=== PATIENT | male | born 1980 | race Caucasian/White ===

== ENCOUNTER 2017-01-25 11:34 | Emergency (ER) | payer OTHER ==
[2017-01-25 11:34] VITALS: BMI 26.6
[2017-01-25] MEDS ORDERED: Albuterol 0.083% Inhal Sol (2.5 mg/3 mL) UD IH STA (12:17)
--- NOTE | 2017-01-25 12:19 | C.PDOC ---
History Of Present Illness 36 yo male w/o significant PMHx come in for evaluation of URI sx for past 2 weeks. Pt reports, started as nasal congestion, sore throat and dry cough. Pt sts, cough gradually worsen and now more persistent, with clear sputum, developed chest tightness on cough. Pt admits, was seen by PMD and completed course of Zithromax without improvement. Otherwise, pt denies high fever, chills , dizziness, headache, neck pain, drooling, dysphagia, dyspnea, SOB, wheezing, abd. pain, N/V/D, UTI sx, back pain. Denies recent travel or sick contact. Ambulate to Ed for evaluation, not in any apparent distress. Time Seen by Provider: 01/25/17 12:00 Chief Complaint (Nursing): Cough, Cold, Congestion History Per: Patient Past Medical History Reviewed: Historical Data, Nursing Documentation, Vital Signs Vital Signs: Last Vital Signs Temp 97.5 F L 01/25/17 11:42 Pulse 69 01/25/17 11:42 Resp 17 01/25/17 11:42 BP 128/83 01/25/17 11:42 Pulse Ox 100 01/25/17 12:19 - Medical History PMH: No Chronic Diseases Denies: Asthma Surgical History: No Surg Hx Family History: States: No Known Family Hx - Social History Hx Tobacco Use: No Hx Alcohol Use: No Hx Substance Use: No - Immunization History Hx Tetanus Toxoid Vaccination: No Hx Influenza Vaccination: No Hx Pneumococcal Vaccination: No Review Of Systems Except As Marked, All Systems Reviewed And Found Negative. Constitutional: Negative for: Fever, Chills ENT: Positive for: Nose Discharge, Nose Congestion. Negative for: Ear Discharge , Throat Pain, Throat Swelling Cardiovascular: Negative for: Chest Pain, Palpitations Respiratory: Positive for: Cough, Sputum. Negative for: Hemoptysis, Pleuritic Pain, Wheezing Gastrointestinal: Negative for: Nausea, Vomiting, Abdominal Pain, Diarrhea Genitourinary: Negative for: Dysuria, Frequency Musculoskeletal: Negative for: Neck Pain, Back Pain Skin: Negative for: Rash Neurological: Negative for: Weakness, Numbness, Altered Mental Status, Headache , Dizziness Physical Exam - Physical Exam Appears: Well, Non-toxic, No Acute Distress Skin: Normal Color, Warm, Dry, No Rash Eye(s): bilateral: PERRL Ear(s): Bilateral: Normal Nose: No Flaring Oral Mucosa: Moist, No Drooling Throat: No Erythema, No Exudate, No Drooling Neck: Supple Cardiovascular: Rhythm Regular, No JVD Respiratory: No Decreased Breath Sounds, No Accessory Muscle Use, No Rales, No Rhonchi, No Stridor, No Wheezing Gastrointestinal/Abdominal: Normal Exam, Soft, No Tenderness Back: No CVA Tenderness Extremity: No Pedal Edema, No Deformity Neurological/Psych: Oriented x3, Normal Speech ED Course And Treatment O2 Sat by Pulse Oximetry: 100 Pulse Ox Interpretation: Normal - Radiology CXR: Interpreted by Me, Viewed By Me CXR Interpretation: Yes: No Acute Disease Progress Note: On re-eval, pt is afebrile, hemodynamicaly stable. Non-toxic, tolerate PO well in ED. PulseOx 100% RA. ENT: no acute findings. Neck: Supple , (-) meningeal sign. Lungs: CTA B/L, BS equal B/L. CVS: (+)S1S2, reg. Neuorlogicaly intact. CXR: no acute finidngs. Pt has clinical findings c/w acute bronchitis. pt advised. ref. to /[facility] in 2-3 days for re-eval. return to ED if any worsening or new changes. Disposition Counseled Patient/Family Regarding: Studies Performed, Diagnosis, Need For Followup, Rx Given - Disposition Referrals: Dexter Dejesus MD [Staff Provider] - Disposition: HOME/ ROUTINE Disposition Time: 13:06 Condition: STABLE Additional Instructions: Encourage fluids Take medication as prescribed Follow up with PMD, Pulmonology in 2-3 days for re-evaluation. Return to ED if any worsening or new changes. Prescriptions: Albuterol HFA [Ventolin HFA 90 mcg/actuation (8 g)] 1 puff IH Q6 #1 inhaler Benzonatate [Tessalon Perle] 100 mg PO TID #14 capsule Prednisone [Deltasone] 40 mg PO DAILY #6 tablet Instructions: Acute Bronchitis (ED) Forms: [employer] ([place]) - Clinical Impression Clinical Impression: Bronchitis
[2017-01-25] MEDS ORDERED: Albuterol 0.083% Inhal Sol (2.5 mg/3 mL) UD ONE (12:51)
[2017-01-25 13:37] VITALS: BP 120/78; PULSE 76; RESP 20; TEMP 97.9; O2SAT 97
--- NOTE | 2017-01-25 15:43 | RAD ---
HISTORY: Cough COMPARISON: 02/03/2016 TECHNIQUE: Chest PA and lateral FINDINGS: LUNGS: No active pulmonary disease. PLEURA: No significant pleural effusion identified. No pneumothorax apparent. CARDIOVASCULAR: Normal. OSSEOUS STRUCTURES: No significant abnormalities. VISUALIZED UPPER ABDOMEN: Normal. OTHER FINDINGS: None. IMPRESSION: No active disease.
== END 2017-01-25 13:35 | disposition home or self-care (01) ==
LOC: C.ER 11:34
DX: J20.9 Acute bronchitis, unspecified (principal)

== ENCOUNTER 2017-02-08 10:55 | Emergency (ER) | payer OTHER ==
[2017-02-08 10:55] VITALS: BMI 26.6
[2017-02-08 11:02] VITALS: BP 122/77; PULSE 77; RESP 16; TEMP 97.9; O2SAT 100
--- NOTE | 2017-02-08 11:16 | C.PDOC ---
History Of Present Illness Patient is a 36 y/o male who presents to the ED with complaints of pain to the left leg after falling a few days ago, points to his severino. Denies any knee pain or ankle pain. Time Seen by Provider: 02/08/17 11:06 Chief Complaint (Nursing): Lower Extremity Problem/Injury History Per: Patient History/Exam Limitations: no limitations Onset/Duration Of Symptoms: Days Current Symptoms Are (Timing): Still Present Recent travel outside of the [place]: No Past Medical History Reviewed: Historical Data, Nursing Documentation, Vital Signs Vital Signs: Last Vital Signs Temp 97.9 F 02/08/17 10:58 Pulse 77 02/08/17 10:58 Resp 16 02/08/17 10:58 BP 122/77 02/08/17 10:58 Pulse Ox 100 02/08/17 11:57 - Medical History PMH: No Chronic Diseases Surgical History: No Surg Hx Family History: States: Unknown Family Hx - Social History Hx Tobacco Use: No Hx Alcohol Use: No Hx Substance Use: No - Immunization History Hx Tetanus Toxoid Vaccination: No Hx Influenza Vaccination: No Hx Pneumococcal Vaccination: No Review Of Systems Constitutional: Negative for: Fever, Weakness Cardiovascular: Negative for: Chest Pain Respiratory: Negative for: Shortness of Breath Gastrointestinal: Negative for: Abdominal Pain Musculoskeletal: Positive for: Leg Pain (LLE) Skin: Negative for: Rash, Bruising Neurological: Negative for: Headache Physical Exam - Physical Exam Appears: Well, Non-toxic, No Acute Distress Skin: Normal Color, Warm, Dry Head: Atraumatic, Normacephalic Eye(s): bilateral: Normal Inspection, EOMI Oral Mucosa: Moist Neck: Normal ROM Chest: Symmetrical Extremity: Normal ROM (x4), No Calf Tenderness, No Deformity, No Swelling, Other (Tenderness to the distal portion of anterior tibial area of the left lower extremity) Pulses: Left Dorsalis Pedis: Normal Neurological/Psych: Oriented x3, Normal Speech Gait: Steady ED Course And Treatment O2 Sat by Pulse Oximetry: 100 (Room air) Pulse Ox Interpretation: Normal - Other Rad Tibia/Fibula X-Ray: Interpreted by Me, Viewed By Me Interpretation: Contusion of L anterior aspect of distal tibia area. Medical Decision Making Medical Decision Making: Impression: Leg injury Plan: Left Tibia/Fibula XRAY ordered. Progress, Reassess and Dispo: Xray reviewed by me showing no acute fracture. Patient advised to ice, rest and take NSAID for pain Disposition Counseled Patient/Family Regarding: Diagnosis, Need For Followup, Rx Given - Disposition Disposition: HOME/ ROUTINE Disposition Time: 11:51 Condition: STABLE Additional Instructions: : Your xray was normal, no fracture. Please apply ice to area 15 minutes three times a day. Take Motrin as needed for pain every 6 hours, with food to not upset stomach. Follow up with orthopedic if pain persists over one week. Prescriptions: Ibuprofen [Motrin] 600 mg PO Q8 #30 tab Instructions: Contusion in Adults (DC) Forms: [employer] ([employer]) - POA Present On Arrival: None - Clinical Impression Clinical Impression: Contusion of leg - Scribe Statement The provider has reviewed the documentation as recorded by the Scribe Gay Zayas All medical record entries made by the Scribe were at my direction and personally dictated by me. I have reviewed the chart and agree that the record accurately reflects my personal performance of the history, physical exam, medical decision making, and the department course for this patient. I have also personally directed, reviewed, and agree with the discharge instructions and disposition.
--- NOTE | 2017-02-08 12:27 | RAD ---
Left tibia and fibula two views History: Pain. Injury. Comparison: None available. Findings: No evidence for acute displaced fracture or dislocation. Impression: Negative acute. If pain persists, consider MRI.
== END 2017-02-08 12:02 | disposition home or self-care (01) ==
LOC: C.ER 10:55
DX: S80.12XA Contusion of left lower leg, initial encounter (principal); W18.30XA Fall on same level, unspecified, initial encounter

== ENCOUNTER 2017-05-03 11:00 | Emergency (ER) | payer OTHER ==
[2017-05-03 11:00] VITALS: BMI 26.6
[2017-05-03 11:17] VITALS: BP 135/77; PULSE 75; RESP 19; TEMP 98; O2SAT 99
--- NOTE | 2017-05-03 11:49 | C.PDOC ---
History Of Present Illness 36 y/o male presents to the ER complaining of runny nose and nonproductive cough which has been present for several days. Patient states that he has chest pain when he is coughing. He denies nausea, vomiting, diarrhea, and fever. He reports that he has rash on both hands. Time Seen by Provider: 05/03/17 11:30 Chief Complaint (Nursing): Cough, Cold, Congestion History Per: Patient History/Exam Limitations: no limitations Onset/Duration Of Symptoms: Days Current Symptoms Are (Timing): Still Present Past Medical History Reviewed: Historical Data, Nursing Documentation, Vital Signs Vital Signs: Last Vital Signs Temp 98.0 F 05/03/17 11:06 Pulse 75 05/03/17 11:06 Resp 19 05/03/17 11:06 BP 135/77 05/03/17 11:06 Pulse Ox 99 05/03/17 15:37 - Medical History PMH: No Chronic Diseases Denies: Asthma Surgical History: No Surg Hx Family History: States: No Known Family Hx - Social History Hx Tobacco Use: No Hx Alcohol Use: No Hx Substance Use: No - Immunization History Hx Tetanus Toxoid Vaccination: No Hx Influenza Vaccination: No Hx Pneumococcal Vaccination: No Review Of Systems Except As Marked, All Systems Reviewed And Found Negative. Constitutional: Negative for: Fever, Chills Cardiovascular: Positive for: Chest Pain (chest pain with coughing) Respiratory: Positive for: Cough (non-productive cough) Physical Exam - Physical Exam Appears: Non-toxic, No Acute Distress Skin: Rash (Eczematous patches on hands bilateraly) Head: Atraumatic, Normacephalic Nose: Normal Oral Mucosa: Moist Neck: Supple Chest: Symmetrical Cardiovascular: Rhythm Regular Respiratory: Normal Breath Sounds, No Rales, No Rhonchi, No Stridor, No Wheezing Gastrointestinal/Abdominal: Normal Exam Neurological/Psych: Oriented x3, Normal Speech, Normal Cognition ED Course And Treatment O2 Sat by Pulse Oximetry: 99 (RA) Pulse Ox Interpretation: Normal Medical Decision Making Medical Decision Making: Impression: Coughing Plan: Disposition Counseled Patient/Family Regarding: Diagnosis, Need For Followup, Rx Given - Disposition Referrals: Dexter Dejesus MD [Staff Provider] - Disposition: HOME/ ROUTINE Disposition Time: 11:46 Condition: STABLE Additional Instructions: FOLLOW UP WITH DR. DEJESUS ON [facility] FOR RE-EVALUATION. IF SYMPTOMS GET WORSE OR ANY NEW CONCERNING SYMPTOMS DEVELOP RETURN TO ED. Prescriptions: Benzonatate [Tessalon Perle] 1 cap PO TID PRN #21 capsule PRN Reason: Cough Triamcinolone 0.1% [Triamcinolone Acetonide] 1 appl TP BID #1 tube Instructions: Eczema in Children (ED), Upper Respiratory Infection (ED) Forms: [employer] ([place]) - Clinical Impression Clinical Impression: Viral illness, Hand eczema - PA / SOIL ENGINEER / Resident Statement MD/DO has reviewed & agrees with the documentation as recorded. - Scribe Statement The provider has reviewed the documentation as recorded by the Krys Fermin Provider Attestation All medical record entries made by the Krys were at my direction and personally dictated by me. I have reviewed the chart and agree that the record accurately reflects my personal performance of the history, physical exam, medical decision making, and the department course for this patient. I have also personally directed, reviewed, and agree with the discharge instructions and disposition.
== END 2017-05-03 12:00 | disposition home or self-care (01) ==
LOC: C.ER 11:00
DX: B34.9 Viral infection, unspecified (principal); L30.9 Dermatitis, unspecified

== ENCOUNTER 2017-07-05 13:30 | Emergency (ER) | payer OTHER ==
[2017-07-05 13:30] VITALS: BMI 26.6
[2017-07-05 13:42] VITALS: BP 112/72; PULSE 72; RESP 16; TEMP 98.6; O2SAT 99
--- NOTE | 2017-07-05 14:38 | C.PDOC ---
History Of Present Illness 36 year old male presents to the ED for evaluation of runny nose and cough that is productive of green sputum which began 1 week ago. Patient notes his cough is associated with chest pain. He states his symptoms have gradually been improving as the week progresses. He denies fever, chills, generalized body aches. Patient denies history of smoking. Time Seen by Provider: 07/05/17 14:05 Chief Complaint (Nursing): Cough, Cold, Congestion History Per: Patient History/Exam Limitations: no limitations Onset/Duration Of Symptoms: Other (1 week ) Current Symptoms Are (Timing): Better Associated Symptoms: Cough, Sputum, Other (runny nose ). denies: Fever, Chills Ear Symptoms: Bilateral: None Additional History Per: Patient Past Medical History Reviewed: Historical Data, Nursing Documentation, Vital Signs Vital Signs: Last Vital Signs Temp 98.6 F 07/05/17 13:39 Pulse 72 07/05/17 13:39 Resp 16 07/05/17 13:39 BP 112/72 07/05/17 13:39 Pulse Ox 99 07/07/17 08:41 - Medical History PMH: No Chronic Diseases Denies: Asthma Surgical History: No Surg Hx Family History: States: Unknown Family Hx - Social History Hx Tobacco Use: No Hx Alcohol Use: No Hx Substance Use: No - Immunization History Hx Tetanus Toxoid Vaccination: No Hx Influenza Vaccination: No Hx Pneumococcal Vaccination: No Review Of Systems Constitutional: Negative for: Fever, Chills ENT: Positive for: Nose Discharge Cardiovascular: Positive for: Chest Pain Respiratory: Positive for: Cough, Sputum Musculoskeletal: Negative for: Other (generalized body aches ) Physical Exam - Physical Exam Appears: Non-toxic, No Acute Distress Skin: Normal Color, Warm, Dry Head: Atraumatic, Normacephalic Eye(s): bilateral: Normal Inspection Ear(s): Bilateral: Other (TM occlusion with cerumen ) Nose: Other (nasal congesion bilaterally ) Oral Mucosa: Moist Throat: Normal, No Erythema, No Exudate Neck: Supple Chest: Symmetrical, No Deformity, No Tenderness Cardiovascular: Rhythm Regular, No Murmur Respiratory: Normal Breath Sounds, No Rales, No Rhonchi, No Wheezing Extremity: Normal ROM, Capillary Refill (less than 2 seconds ) Neurological/Psych: Normal Speech, Normal Cognition ED Course And Treatment O2 Sat by Pulse Oximetry: 99 (on RA) Pulse Ox Interpretation: Normal Medical Decision Making Medical Decision Making: Please take mucinex as prescribed for cough and Ibuprofen for pain from coughing. FOllow up with your doctor. Disposition Counseled Patient/Family Regarding: Diagnosis, Need For Followup, Rx Given - Disposition Referrals: Dexter Dejesus MD [Staff Provider] - Disposition: HOME/ ROUTINE Disposition Time: 15:13 Condition: GOOD Additional Instructions: Please take mucinex for cough. Take Tylneol or Motrin for pain from coughing. Follow up with Dr Dejesus in 1-2 days. Return to ER for any worse symptoms. Prescriptions: Benzonatate [Tessalon Perle] 100 mg PO TID #10 capsule Ibuprofen [Motrin] 600 mg PO TID #30 tab Instructions: Viral Upper Respiratory Infection, Adult (DC) Forms: [employer] ([place]ian), General Discharge Instructions - Clinical Impression Clinical Impression: Upper respiratory infection - PA / MILITARY EQUIPMENT SPECIALIST / Resident Statement MD/DO has reviewed & agrees with the documentation as recorded. - Scribe Statement The provider has reviewed the documentation as recorded by the Scribe (Marilyn Knight) All medical record entries made by the Scribe were at my direction and personally dictated by me. I have reviewed the chart and agree that the record accurately reflects my personal performance of the history, physical exam, medical decision making, and the department course for this patient. I have also personally directed, reviewed, and agree with the discharge instructions and disposition.
== END 2017-07-05 15:32 | disposition home or self-care (01) ==
LOC: C.ER 13:30
DX: J06.9 Acute upper respiratory infection, unspecified (principal)

== ENCOUNTER 2018-05-26 10:36 | Emergency (ER) | payer OTHER ==
[2018-05-26 10:36] VITALS: BMI 26.6
--- NOTE | 2018-05-26 12:12 | C.PDOC ---
History Of Present Illness 37 y/o male presents to the ED complaining of a runny nose, cough, and fever for 3 days. He has not tried taking any OTC meds. Cough has no sputum production. Patient reports developed some chest pain with coughing, as well as feeling fatigued. No known sick contacts. No recent travel. Time Seen by Provider: 05/26/18 11:16 Chief Complaint (Nursing): Flu-like Symptoms History Per: Patient History/Exam Limitations: no limitations Onset/Duration Of Symptoms: Days (x 3) Current Symptoms Are (Timing): Still Present Associated Symptoms: Fever, Cough, Nasal Congestion Past Medical History - Medical History PMH: Denies: Asthma Family History: States: Unknown Family Hx - Social History Hx Tobacco Use: No Hx Alcohol Use: No Hx Substance Use: No - Immunization History Hx Tetanus Toxoid Vaccination: No Hx Influenza Vaccination: No Hx Pneumococcal Vaccination: No Review Of Systems Constitutional: Positive for: Fever, Weakness (fatigue). Negative for: Chills Eyes: Negative for: Redness, Other (icterus) ENT: Positive for: Nose Congestion. Negative for: Mouth Swelling, Throat Pain Cardiovascular: Positive for: Chest Pain (with coughing) Respiratory: Positive for: Cough. Negative for: Shortness of Breath, Sputum Gastrointestinal: Negative for: Nausea, Vomiting, Diarrhea Genitourinary: Negative for: Dysuria, Hematuria Musculoskeletal: Negative for: Back Pain Skin: Negative for: Rash Neurological: Negative for: Weakness, Numbness, Dizziness Physical Exam - Physical Exam Appears: Well, Non-toxic, No Acute Distress Skin: Normal Color, Warm, No Rash Head: Atraumatic, Normacephalic Eye(s): bilateral: Normal Inspection, PERRL, EOMI Ear(s): Bilateral: Normal (no drainage) Nose: Discharge (Enlarged turbinates bilaterally with clear nasal discharge) Oral Mucosa: Moist Throat: Normal (no swelling or injection, airway patent), No Erythema, No Exudate Neck: Normal ROM, Supple Chest: Symmetrical, No Tenderness Cardiovascular: Rhythm Regular, No Murmur Respiratory: Normal Breath Sounds, No Rales, No Rhonchi, No Wheezing, Other (Moving air well) Gastrointestinal/Abdominal: Soft, No Tenderness, No Distention Extremity: Bilateral: Atraumatic, Normal ROM Pulses: Left Radial: Normal, Right Radial: Normal Neurological/Psych: Oriented x3, Normal Cranial Nerves Medical Decision Making Medical Decision Making: Impression: Flu-like symptoms Plan: CXR taken and flu swab sent. Serology reviewed, flu negative. Disposition Counseled Patient/Family Regarding: Studies Performed, Diagnosis, Need For Followup, Rx Given - Disposition Disposition: HOME/ ROUTINE Disposition Time: 12:32 Condition: STABLE Additional Instructions: DEB ROCKWE[place], thank you for letting us take care of you today. Your provider was Neiljoi LOU and you were treated for upper respiratory infection. The emergency medical care you received today was directed at your acute symptoms. If you were prescribed any medication, please fill it and take as directed. It may take several days for your symptoms to resolve. Return to the Emergency Department if your symptoms worsen, do not improve, or if you have any other problems. Please contact your doctor or call one of the physicians/clinics you have been referred to that are listed on the Patient Visit Information form that is included in your discharge packet. Bring any paperwork you were given at discharge with you along with any medications you are taking to your follow up visit. Our treatment cannot replace ongoing medical care by a primary care provider outside of the emergency department. Thank you for allowing the [facility] team to be part of your care today. If you had an X-Ray or CT scan: A Radiologist will review the ED reading if any change in treatment is needed we will contact you. Prescriptions: Cetirizine HCl/Pseudoephedrine [Zyrtec-D Tablet] 1 each PO DAILY #14 tab.er.12h Ibuprofen [Motrin Tab] 600 mg PO TID #30 tab Instructions: Viral Upper Respiratory Infection, Adult (DC) Forms: [employer] ([place]), General Discharge Instructions, Work Excuse - Clinical Impression Clinical Impression: Upper respiratory infection - PA / OBJECT ORIENTED PROGRAMMER / Resident Statement MD/DO has reviewed & agrees with the documentation as recorded. - Scribe Statement The provider has reviewed the documentation as recorded by the Suadibcoleen Parry All medical record entries made by the Scribe were at my direction and personally dictated by me. I have reviewed the chart and agree that the record accurately reflects my personal performance of the history, physical exam, medical decision making, and the department course for this patient. I have also personally directed, reviewed, and agree with the discharge instructions and disposition.
--- NOTE | 2018-05-26 12:18 | RAD ---
HISTORY: pna COMPARISON: Chest x-ray performed 01/25/17 TECHNIQUE: Chest PA and lateral FINDINGS: LUNGS: No focal consolidation. Please note that chest x-ray has limited sensitivity for the detection of pulmonary masses. PLEURA: No significant pleural effusion identified. No definite pneumothorax . CARDIOVASCULAR: Heart size appears within normal limits. No atherosclerotic calcification present. OSSEOUS STRUCTURES: No acute osseous abnormality identified. VISUALIZED UPPER ABDOMEN: Unremarkable. OTHER FINDINGS: None. IMPRESSION: No focal consolidation.
[2018-05-26 12:21] VITALS: BP 117/73; PULSE 76; RESP 18; TEMP 98.2; O2SAT 99
== END 2018-05-26 12:43 | disposition home or self-care (01) ==
LOC: C.ER 10:36
DX: J06.9 Acute upper respiratory infection, unspecified (principal)

== ENCOUNTER 2018-09-10 12:49 | Emergency (ER) | payer OTHER ==
[2018-09-10 12:49] VITALS: BMI 26.6
--- NOTE | 2018-09-10 13:18 | C.PDOC ---
History Of Present Illness 37 y/o male presents to the ED complaining of a runny nose and non-productive cough for the past 2 days. He also reports having some chest pain with the coughing. Otherwise he denies any fevers, chills, SOB, vomiting, diarrhea, or other associated symptoms. Time Seen by Provider: 09/10/18 12:58 Chief Complaint (Nursing): Cough, Cold, Congestion History Per: Patient History/Exam Limitations: no limitations Onset/Duration Of Symptoms: Days Current Symptoms Are (Timing): Still Present Associated Symptoms: Cough, Nasal Congestion Past Medical History Reviewed: Historical Data, Nursing Documentation, Vital Signs Vital Signs: Last Vital Signs Temp 97.9 F 09/10/18 12:52 Pulse 86 09/10/18 12:52 Resp 19 09/10/18 12:52 BP 152/83 H 09/10/18 12:52 Pulse Ox 100 09/10/18 12:52 - Medical History PMH: Denies: Asthma Family History: States: Unknown Family Hx - Social History Hx Tobacco Use: No Hx Alcohol Use: No Hx Substance Use: No - Immunization History Hx Tetanus Toxoid Vaccination: No Hx Influenza Vaccination: No Hx Pneumococcal Vaccination: No Review Of Systems Constitutional: Negative for: Fever, Chills ENT: Positive for: Nose Discharge Cardiovascular: Negative for: Chest Pain Respiratory: Positive for: Cough. Negative for: Shortness of Breath, Sputum Gastrointestinal: Negative for: Vomiting, Diarrhea Neurological: Negative for: Weakness, Dizziness Physical Exam - Physical Exam Appears: Non-toxic, No Acute Distress Skin: Warm, No Rash Head: Atraumatic, Normacephalic Eye(s): bilateral: PERRL, EOMI Ear(s): Left: Normal, Right: TM Obscured By Wax Nose: Discharge (+ clear rhinorrhea) Oral Mucosa: Moist Throat: Normal (Oropharynx is clear), No Erythema, No Exudate Neck: Normal ROM, Supple Lymphatic: No Adenopathy (no lymphadenopathy) Chest: Symmetrical, No Tenderness Cardiovascular: Rhythm Regular, No Murmur Respiratory: Normal Breath Sounds, No Rales, No Rhonchi, No Wheezing Extremity: Bilateral: Normal Color And Temperature, Normal ROM Pulses: Left Radial: Normal, Right Radial: Normal Neurological/Psych: Oriented x3, Normal Speech, Normal Cognition ED Course And Treatment O2 Sat by Pulse Oximetry: 100 (on RA) Pulse Ox Interpretation: Normal Medical Decision Making Medical Decision Making: Impression: Common cold vs seasonal allergies Plan: Patient will be discharged home with Rx for Claritin and Tylenol. Advised to follow up with the clinic for further evaluation. Disposition Counseled Patient/Family Regarding: Diagnosis, Need For Followup, Rx Given - Disposition Referrals: [facility] [Outside] [facility] [Outside] Disposition: HOME/ ROUTINE Disposition Time: 13:16 Condition: GOOD Additional Instructions: Please take Tylenol for pain when coughing if needed. Take Claritin (loratidine) once a day for nasal symptoms. Call [facility] or customer service from your medical insurance to help you find a primary care doctor to follow up with in next few days. Return to ER for any worse symptoms. . 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 - Scribe Statement The provider has reviewed the documentation as recorded by the Krys Parry All medical record entries made by the Krys were at my direction and personally dictated by me. I have reviewed the chart and agree that the record accurately reflects my personal performance of the history, physical exam, medical decision making, and the department course for this patient. I have also personally directed, reviewed, and agree with the discharge instructions and disposition.
[2018-09-10 13:26] VITALS: BP 129/77; PULSE 89; RESP 18; TEMP 98.4
[2018-09-10 13:27] VITALS: O2SAT 100
== END 2018-09-10 13:26 | disposition home or self-care (01) ==
LOC: C.ER 12:49
DX: J06.9 Acute upper respiratory infection, unspecified (principal)